=== PATIENT | male | born 1960 | race African-American/Black ===

== ENCOUNTER 2020-11-18 11:06 | Emergency (ER) | payer MEDICARE, MEDICAID ==
[~2020-11-18] VITALS: Ht 172.7 cm; Wt 73.0 kg
[2020-11-18] MEDS ORDERED: SODIUM CHLORIDE 0.9% 1,000 ML IV ONE (12:00)
[2020-11-18 12:19] LABS: BASOPHILS % 0.3 % (0.0-2.0); EOSINOPHILS % 0.3 % (0.0-5.0); HEMATOCRIT. 45.1 % (42.0-52.0); HEMOGLOBIN. 15.7 g/dL (14.0-18.0); LYMPHOCYTES % 10.8 % (20.0-50.0); MEAN CORPUSCULAR HEMOGLOBIN 32.8 pg (28.0-32.0); MEAN CORPUSCULAR VOLUME 94.2 fL (80.0-94.0); MEAN PLATELET VOLUME 8.8 fl (7.4-10.4); MONOCYTES % 5.4 % (2.0-8.0); NEUTROPHILS % 83.2 % (40.0-76.0); PLATELET 239 x1000/uL (130-400); RED BLOOD CELL COUNT 4.79 mill/uL (4.7-6.1); RED CELL DISTRIBUTION WIDTH 12.6 % (11.6-14.6)
[2020-11-18 12:27] LABS: CHLORIDE 102 mEq/L (98-107)
[2020-11-18 12:38] LABS: PROTHROMBIN TIME 10.6 sec (9.6-11.0)
[2020-11-18] MEDS ORDERED: MORPHINE SULFATE 4 MG/ML CPJ (NOT FOR IM USE) IV STA (13:07)
[2020-11-18] MEDS ORDERED: ONDANSETRON HCL 4MG/2ML INJ IV STA (13:07)
[2020-11-18 14:54] LABS: CLARITY URINE CLOUDY (CLEAR); COLOR URINE YELLOW (YELLOW); KETONES URINE 2+ (NEGATIVE); LEUKOCYTE ESTERASE URINE 3+ (NEGATIVE); NITRITE URINE NEGATIVE (NEGATIVE); OCCULT BLOOD URINE 3+ (NEGATIVE); PROTEIN URINE 1+ (NEGATIVE); SPECIFIC GRAVITY URINE 1.009 (1.005-1.030); UROBILINOGEN URINE 0.2 E.U./dL (0.2-1.0)
[2020-11-18] MEDS ORDERED: CEFTRIAXONE 1 G PREMIX 50 ML IV ONE (15:00)
[2020-11-18] MEDS ORDERED: CEPH500C2 MT (15:15)
[2020-11-18 15:46] VITALS: BP 118/82
== END 2020-11-18 15:48 | disposition home or self-care (01) ==
LOC: ER 11:06
DX: N30.01 Acute cystitis with hematuria (principal); N40.0 Benign prostatic hyperplasia without lower urinary tract symptoms; Z98.890 Other specified postprocedural states; Z90.49 Acquired absence of other specified parts of digestive tract; Z91.09 Other allergy status, other than to drugs and biological substances
CPT/HCPCS: 36415; 80053; 81003; 83605; 85025; 85610; 87086; 93005; 96361; 96365; 96375; 99284; J0696; J2270; J2405; J7030

== ENCOUNTER 2022-06-10 10:59 | Emergency (ER) | payer MEDICARE, MEDICAID, OTHER ==
[~2022-06-10] VITALS: Ht 172.7 cm; Wt 75.0 kg
[~2022-06-10 10:59] MED LIST: CEPH500C2 MT
[2022-06-10 11:10] VITALS: BP 132/83
[2022-06-10] MEDS ORDERED: CYCL5TAB MT (12:14)
[2022-06-10] MEDS ORDERED: NAPR-1176 MT (12:14)
== END 2022-06-10 12:35 | disposition home or self-care (01) ==
LOC: ER 10:59
DX: S16.1XXA Strain of muscle, fascia and tendon at neck level, initial encounter (principal); F32.A Depression, unspecified; N40.0 Benign prostatic hyperplasia without lower urinary tract symptoms; Z90.49 Acquired absence of other specified parts of digestive tract; Z98.890 Other specified postprocedural states; Z91.09 Other allergy status, other than to drugs and biological substances; X58.XXXA Exposure to other specified factors, initial encounter; Y93.89 Activity, other specified; Y92.013 Bedroom of single-family (private) house as the place of occurrence of the external cause
CPT/HCPCS: 99283

== ENCOUNTER 2023-08-31 21:00 | Emergency (ER) | payer MEDICAID, MEDICARE, OTHER ==
[~2023-08-31] VITALS: Ht 172.7 cm; Wt 76.0 kg
[~2023-08-31 21:00] MED LIST changes: +CYCL5TAB MT; +NAPR-1176 MT
[2023-08-31 21:08] VITALS: BP 129/73; O2SAT 98
[2023-08-31 22:08] LABS: CLARITY URINE CLEAR (CLEAR); COLOR URINE YELLOW (YELLOW); GLUCOSE URINE NEGATIVE (NEGATIVE); KETONES URINE NEGATIVE (NEGATIVE); LEUKOCYTE ESTERASE URINE NEGATIVE (NEGATIVE); NITRITE URINE NEGATIVE (NEGATIVE); OCCULT BLOOD URINE NEGATIVE (NEGATIVE); PROTEIN URINE NEGATIVE (NEGATIVE); SPECIFIC GRAVITY URINE 1.018 (1.005-1.030); UROBILINOGEN URINE 0.2 E.U./dL (0.2-1.0)
[2023-09-01] MEDS ORDERED: NYST15CR37 TOP (00:46)
[2023-09-01 01:05] VITALS: PULSE 75; RESP 20; TEMP 98.4
[2023-09-03 04:10] LABS: CHLAMYDIA TRACHOMATIS NAA Negative (Negative); NEISSERIA GONORRHOEAE NAA Negative (Negative)
== END 2023-09-01 01:00 | disposition home or self-care (01) ==
LOC: ER 21:00
DX: N48.1 Balanitis (principal); F41.9 Anxiety disorder, unspecified; F32.9 Major depressive disorder, single episode, unspecified; Z90.49 Acquired absence of other specified parts of digestive tract
CPT/HCPCS: 81003; 87491; 87591; 99283